=== PATIENT | male | born 1965 | race American Indian/Alaskan Native ===

== ENCOUNTER 2017-05-16 17:44 | Inpatient (IN) | payer BC ==
[2017-05-16] MEDS ORDERED: Morphine 4 MG/ML VIAL IV STA (18:38)
[2017-05-16] MEDS ORDERED: Morphine 4 MG/ML VIAL ONE (19:01)
[2017-05-16 19:04] LABS: BASO % 0.8 % (0.0-2.0); EOS # 0.2 K/uL (0.0-0.7); EOS % 5.5 % (0.0-4.0); HEMATOCRIT 38.8 % (35.0-51.0); LYMPH # 1.5 K/uL (1.0-4.3); LYMPH % 34.5 % (20.0-40.0); MEAN CELL VOLUME 84.7 fL (80.0-94.0); MEAN CORPUSCULAR HEMOGLOBIN 27.9 pg (27.0-31.0); MONO # 0.4 K/uL (0.0-0.8); MONO % 9.6 % (0.0-10.0); RED CELL DISTRIBUTION WIDTH 14.1 % (11.5-14.5); WHITE BLOOD COUNT 4.5 K/uL (4.8-10.8)
[2017-05-16 19:11] LABS: CHLORIDE 104 mmol/L (98-107)
[2017-05-16 19:12] LABS: POTASSIUM 3.8 mmol/L (3.6-5.2); SODIUM 137 mmol/L (132-148)
[2017-05-16 19:14] LABS: ALB/GLOB RATIO 0.9 (1.0-2.1); AST/SGOT 26 U/L (17-59); BILIRUBIN,TOTAL 0.4 mg/dL (0.2-1.3); CARBON DIOXIDE 24 mmol/L (22-30); GFR AFRICAN-AMERICAN > 60; TOTAL PROTEIN 8.6 g/dL (6.3-8.3)
[2017-05-16 19:15] LABS: ALKALINE PHOSPHATASE 77 U/L (38-126); ALT/SGPT 43 U/L (21-72); BLOOD UREA NITROGEN 14 mg/dL (9-20); CALCIUM 8.4 mg/dl (8.6-10.4); GLUCOSE,RANDOM 87 mg/dL (75-110)
--- NOTE | 2017-05-16 19:24 | RAD ---
PROCEDURE: CHEST RADIOGRAPH, 1 VIEW HISTORY: SOB COMPARISON: None available. FINDINGS: LUNGS: No infiltrates identified bilaterally. PLEURA: No pneumothorax or pleural fluid seen. CARDIOVASCULAR: Normal. OSSEOUS STRUCTURES: No significant abnormalities. VISUALIZED UPPER ABDOMEN: Normal. OTHER FINDINGS: None. IMPRESSION: No acute cardiopulmonary disease appreciated.
[2017-05-16] MEDS ORDERED: Iodixanol 320 MG/ML 200 ML BOTTLE IV ONE (20:14)
--- NOTE | 2017-05-16 21:48 | CT ---
EXAM: CT Chest With Intravenous Contrast CLINICAL HISTORY: 51 years old, male; Pain; Other: Upper back pain; Chest pain; Type not specified; Additional info: Belly radiating to back, +htn/dm TECHNIQUE: Axial computed tomography images of the chest with intravenous contrast. All CT scans at this facility use one or more dose reduction techniques, viz.: automated exposure control; ma/kV adjustment per patient size (including targeted exams where dose is matched to indication; i.e. head); or iterative reconstruction technique. Coronal and sagittal reformatted images were created and reviewed. CONTRAST: 100 mL of VISIPAQUE 320 administered intravenously. COMPARISON: No relevant prior studies available. FINDINGS: Lungs: Small amount of air is noted within the right ventricle and the left brachiocephalic vein. 3 tiny bubbles of air are also noted within tiny veins in the anterior mediastinum fat. A 3.6 mm nodule is noted in the posterior basal segment of the right lower lobe (series 6 image 49). A 2.5 mm pleural-based nodule is noted in the posterior basal segment of the left lower lobe (series 6 image 82). 8mm pleural based nodule is noted along the major fissure in the left upper lung field (series 6 image 38). Pleural space: Unremarkable. No pneumothorax. No significant effusion. Heart: See above. Bones/joints: Unremarkable. No acute fracture. No dislocation. Soft tissues: Unremarkable. Vasculature: See above. Lymph nodes: Unremarkable. No enlarged lymph nodes. IMPRESSION: 1. No evidence of aortic dissection or pulmonary embolic disease. 2. Bilateral pulmonary nodules. For low-risk patients, no follow-up is necessary. For high-risk patients (smoking history or other known risk factors) an optional chest CT at 12 months could be performed.. EXAM: CT Abdomen and Pelvis With Intravenous Contrast EXAM DATE/TIME: Exam ordered 05/16/2017 6:38 PM CLINICAL HISTORY: 51 years old, male; Pain; Other: Upper back pain; Chest pain; Type not specified; Additional info: Belly radiating to back, +htn/dm TECHNIQUE: Axial computed tomography images of the abdomen and pelvis with intravenous contrast. All CT scans at this facility use one or more dose reduction techniques, viz.: automated exposure control; ma/kV adjustment per patient size (including targeted exams where dose is matched to indication; i.e. head); or iterative reconstruction technique. Coronal and sagittal reformatted images were created and reviewed. CONTRAST: 100 mL of VISIPAQUE 320 administered intravenously. COMPARISON: No relevant prior studies available. FINDINGS: Lower thorax: No acute findings. ABDOMEN: Liver: Unremarkable. No mass. Gallbladder and bile ducts: Unremarkable. No calcified stones. No ductal dilation. Pancreas: Unremarkable. No mass. No ductal dilation. Spleen: Unremarkable. No splenomegaly. Adrenals: Unremarkable. No mass. Kidneys and ureters: There is mild fullness of the left renal collecting system and the left ureter. Stomach and bowel: Unremarkable. No obstruction. No mucosal thickening. Appendix: No findings to suggest acute appendicitis. PELVIS: Bladder: The bladder wall is thickened. The bladder is markedly distended measuring 17.4 x 9 by 11.3 cm. for a volume of 885 cc . Reproductive: The prostate measures 3.8 x 4.9 by 5 cm. for a volume of 48 g. ABDOMEN and PELVIS: Intraperitoneal space: Unremarkable. No free air. No significant fluid collection. Bones/joints: No acute fracture. No dislocation. Soft tissues: Unremarkable. Vasculature: Unremarkable. No abdominal aortic aneurysm. Lymph nodes: Unremarkable. No enlarged lymph nodes. IMPRESSION: 1. No evidence of aortic aneurysm or dissection. 2. Markedly distended bladder. 3. The prostate is mildly enlarged at 48 g in volume.
[2017-05-16 22:01] LABS: RBC URINE < 1 /hpf (0-3); URINE BILIRUBIN NEGATIVE (NEGATIVE); URINE BLOOD NEGATIVE (NEGATIVE); URINE COLOR Yellow (YELLOW); URINE GLUCOSE (UA) NORMAL (Normal); URINE KETONE NEGATIVE (NEGATIVE); URINE LEUKOCYTE ESTERASE NEG Leu/uL (Negative); URINE PROTEIN NEGATIVE (NEGATIVE); URINE UROBILINOGEN NORMAL mg/dL (0.2-1.0); WBC URINE 1 /hpf (0-5)
--- NOTE | 2017-05-16 22:02 | C.PDOC ---
History Of Present Illness Patient is a 51 y/o male who presents to the ED with a complaint of epigastric discomfort associated with incomplete urination and urinary incontinence at night while sleeping. 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 Notes having to force urination while sitting down. Patient has previous ED visits for same symptoms. Patient was evaluated by Dr. Hiro Hare and notes he has not been compliant with his Flomax since he ran out recently. Time Seen by Provider: 05/16/17 18:31 Chief Complaint (Nursing): Abdominal Pain History Per: Patient Past Medical History Vital Signs: Last Vital Signs Temp 98.1 F 05/17/17 00:00 Pulse 83 05/17/17 00:00 Resp 14 05/17/17 00:00 BP 140/94 H 05/17/17 00:00 Pulse Ox 100 05/17/17 01:14 - Medical History PMH: Diverticulitis, HTN, Kidney Stones (2003) Denies: Anxiety, Bipolar Disorder, Depression, Personality Disorder, Post Traumatic Stress Disorder, Schizophrenia - [facility] Procedures INTRODUCTION OF SERUM/TOX/VACCINE INTO MUSCLE, PERC APPROACH (10/19/15) Family History: States: Unknown Family Hx - Social History Hx Alcohol Use: Yes (Social use) Hx Substance Use: No - Immunization History Hx Tetanus Toxoid Vaccination: Yes Hx Influenza Vaccination: Yes Hx Pneumococcal Vaccination: No ED Course And Treatment - Laboratory Results Result Diagrams: 05/16/17 19:00 05/16/17 19:00 Lab Interpretation: Normal (UA neg.) ECG: Interpreted By Me ECG Rhythm: Sinus Rhythm ECG Interpretation: Normal Rate From EC O2 Sat by Pulse Oximetry: 100 Pulse Ox Interpretation: Normal - Radiology CXR: Interpreted by Me CXR Interpretation: Yes: No Acute Disease - CT Scan/US Chest Other Rad Studies (CT/US): Interpreted By Me, Read By Radiologist CT/US Interpretation: IMPRESSION: No evidence of aortic dissection or pulmonary embolic disease. Bilateral pulmonary nodules. For low-risk patients, no follow-up is necessary. For high-risk patients (smoking history or other known risk factors) an ptional chest CT at 12 months could be performed. Abd/Pelv Other Rad Studies (CT/US): Interpreted By Me, Read By Radiologist CT/US Interpretation: IMPRESSION: No evidence of aortic aneurysm or dissection. Markedly distended bladder. The prostate is mildly enlarged at 48 g in volume. Progress Note: 2200: enlarged prostate and distended bladder noted on CT ( approx 800cc) pt encouraged to urinate until empty for only approx 300-400 cc, chairez catheter placed without any urine. later chairez flushed and repositioned for rashel blood which clotted repeatedly and quickly. d/w Dr. Sky Chen and CBI ordered and well tolerated. Critical Care Time - Critical Care Note Total Time (in mins): 90 Documented critical care: time excludes all time spent performing seperately billable procedures. Medical Decision Making Medical Decision Making: recurrent urinary retention with enlarged prostate and thickened bladder noted on multiple CT scans. overflow incontinence non-compliance with flomax (or equivelent) chairez failed and provoked gross hematuria so CBI started, flomax restarted. Urology to follow in AM Disposition Doctor Will See Patient In The: Hospital Counseled Patient/Family Regarding: Studies Performed, Diagnosis - Disposition Disposition: HOSPITALIZED Disposition Time: 23:57 Condition: GOOD - Clinical Impression Clinical Impression: Urinary retention, Hematuria
--- NOTE | 2017-05-17 01:15 | C.PDOC ---
History Of Present Illness Patient is a 51 y/o male who presents to the ED with a complaint of epigastric discomfort that radiates to the back associated with incomplete urination and urinary incontinence at night while sleeping. 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 Notes having to force urination while sitting down. Patient has previous ED visits for same symptoms. Patient was evaluated by Dr. Hiro Hare and notes he has not been compliant with his Flomax since he ran out recently. Time Seen by Provider: 05/16/17 18:31 Chief Complaint (Nursing): Abdominal Pain History Per: Patient History/Exam Limitations: no limitations Location Of Pain/Discomfort: Epigastric Radiation Of Pain To:: Back Associated Symptoms: Urinary Symptoms (forced urination) Past Medical History Reviewed: Historical Data, Nursing Documentation, Vital Signs Vital Signs: Last Vital Signs Temp 98.4 F 05/18/17 15:15 Pulse 98 H 05/18/17 15:15 Resp 20 05/18/17 15:15 BP 136/79 05/18/17 15:15 Pulse Ox 96 05/18/17 15:15 - Medical History PMH: Diverticulitis, HTN, Kidney Stones (2003) Denies: Anxiety, Bipolar Disorder, Depression, Personality Disorder, Post Traumatic Stress Disorder, Schizophrenia Surgical History: No Surg Hx - [facility] Procedures INTRODUCTION OF SERUM/TOX/VACCINE INTO MUSCLE, PERC APPROACH (10/19/15) Family History: States: Unknown Family Hx - Social History Hx Alcohol Use: Yes (Social use) Hx Substance Use: No - Immunization History Hx Tetanus Toxoid Vaccination: Yes Hx Influenza Vaccination: Yes Hx Pneumococcal Vaccination: No Review Of Systems Gastrointestinal: Positive for: Abdominal Pain (epigastric - radiation to back) Genitourinary: Positive for: Incontinence (at night), Other (incomplete urination) Physical Exam - Physical Exam Appears: Well, Non-toxic, Other (tall, large, mordibly obese) Skin: Normal Color, Warm, Dry Head: Atraumatic, Normacephalic Oral Mucosa: Moist Chest: Symmetrical Cardiovascular: Rhythm Regular, No Murmur Respiratory: Normal Breath Sounds, No Rales, No Rhonchi, No Wheezing Gastrointestinal/Abdominal: Tenderness (suprapubic above umbilicus) Neurological/Psych: Oriented x3, Normal Speech, Normal Cognition ED Course And Treatment - Laboratory Results Result Diagrams: 05/18/17 07:14 11/11/17 07:14 O2 Sat by Pulse Oximetry: 100 - CT Scan/US Abd/Pelv Other Rad Studies (CT/US): Interpreted By Me, Read By Radiologist CT/US Interpretation: IMPRESSION: 1. No evidence of aortic aneurysm or dissection. 2. Markedly distended bladder. 3. The prostate is mildly enlarged at 48 g in volume. Medical Decision Making Medical Decision Making: Blood work, EKG, CXR, and CT Abd/Pelv ordered. Zofran, Percocet, Flomax, and Maxipime administered. Patient to be admitted to hospital. Disposition Doctor Will See Patient In The: Hospital Counseled Patient/Family Regarding: Studies Performed, Diagnosis - Disposition Disposition: HOSPITALIZED Disposition Time: 00:00 Condition: GOOD - Clinical Impression Clinical Impression: Urinary retention, Hematuria - Scribe Statement The provider has reviewed the documentation as recorded by the Scribe Misty Hernadez All medical record entries made by the Scribe were at my direction and personally dictated by me. I have reviewed the chart and agree that the record accurately reflects my personal performance of the history, physical exam, medical decision making, and the department course for this patient. I have also personally directed, reviewed, and agree with the discharge instructions and disposition.
[2017-05-17] MEDS: Dextrose 5%/0.45% NS 1,000 ML IV SCH ×2 (01:28→14:56)
[2017-05-17] MEDS: Oxycodone/Acetaminophen 5/325 mg Tab PO PRN (03:17)
--- NOTE | 2017-05-17 09:41 | CP.PCM.PN ---
Subjective - Date & Time of Evaluation Date of Evaluation: 05/17/17 Time of Evaluation: 09:37 - Subjective Subjective: Medicine Progress Note- Dr Belcher's service Patient seen and examined. Patient continues to have dark, rashel blood in his urine. Patient denies abdominal pain or back pain and states that those symptoms which initially brought him to the ED have now resolved. Patient states that he recently saw Dr Chen in his office and that he has a history of kidney stones. Patient states that he does not take any home medications. However, patient states he used to be on medication for his DM which he states his PMD discontinued because his sugars were controlled. Patient's PMD is located at [facility]. The patient had skin graft procedure on his left medial javed last week. He is following vascular surgeon as outpatient and a wound care center as well. Patient denies chest pain, palpitations, change in bowel movements, headache, dizziness, nausea, vomiting, and shortness of breath. Patient is scheduled for cystoscopy with Dr Chen today. The patient is medically stable for the procedure per attending Dr Belcher as benefits outweigh the risks. Objective - Vital Signs/Intake and Output Vital Signs (last 24 hours): Temp Pulse Resp BP Pulse Ox 98.6 F 91 H 20 101/65 96 05/17/17 08:00 05/17/17 08:00 05/17/17 08:00 05/17/17 08:00 05/17/17 08:00 Intake and Output: 05/17/17 05/17/17 06:59 18:59 Intake Total 600 Output Total 1675 Balance -1075 - Medications Medications: Current Medications Cefepime HCl 1 gm/ Dextrose 50 mls @ 100 mls/hr IVPB Q12H [facility] Last Admin: 05/17/17 01:50 Dose: 100 mls/hr Dextrose/Sodium Chloride (Dextrose 5%/0.45% Ns 1000 Ml) 1,000 mls @ 100 mls/hr IV .Q10H [facility] Last Admin: 05/17/17 01:28 Dose: 100 mls/hr Oxycodone/Acetaminophen (Percocet 5/325 Mg Tab) 1 tab PO Q4H PRN PRN Reason: pain Stop: 05/20/17 01:18 Last Admin: 05/17/17 03:17 Dose: 1 tab Pneumococcal Polyvalent Vaccine (Pneumovax 23 Vaccine) 0.5 ml IM .ONCE ONE Stop: 05/19/17 10:01 Tamsulosin HCl (Flomax) 0.4 mg PO DAILY JULIEN - Labs Labs: 05/17/17 01:22 05/16/17 19:00 - Constitutional Appears: Non-toxic, No Acute Distress - Head Exam Head Exam: ATRAUMATIC, NORMOCEPHALIC - Eye Exam Eye Exam: EOMI, Normal appearance, PERRL Pupil Exam: NORMAL ACCOMODATION - ENT Exam ENT Exam: Mucous Membranes Moist, Normal Exam - Neck Exam Neck Exam: Full ROM, Normal Inspection - Respiratory Exam Respiratory Exam: Clear to Ausculation Bilateral, NORMAL BREATHING PATTERN. absent: Rales, Rhonchi, Wheezes, Respiratory Distress - Cardiovascular Exam Cardiovascular Exam: REGULAR RHYTHM, +S1, +S2. absent: Tachycardia, Irregular Rhythm, Murmur - GI/Abdominal Exam GI & Abdominal Exam: Soft, Normal Bowel Sounds. absent: Distended, Firm, Guarding, Rigid, Tenderness - Exam Additional comments: Urine dark red - Extremities Exam Extremities Exam: absent: Pedal Edema, Tenderness Additional comments: Left medial javed graft healing well, no active drainage or bleeding. Covered area in clean dressing this morning. - Neurological Exam Neurological Exam: Alert, Awake, CN II-XII Intact, Oriented x3 - Psychiatric Exam Psychiatric exam: Normal Affect, Normal Mood - Skin Skin Exam: Dry, Normal Color, Warm Assessment and Plan - Assessment and Plan (Free Text) Assessment: 1. Hematuria Consulted urologist Dr Chen, help appreciated. Will f/u recommendations. s/p chairez insertion Scheduled for cystoscopy today, will f/u findings Hgb stable at this time, monitor CBC daily Flomax 0.4mg po daily 2. Abdominal pain Resolved CXR: No acute cardiopulmonary disease appreciated. CT dissection: No evidence of AAA or dissection. Bladder distended. Prostate enlarged. 3. Hx of DM Patient denies home medications. Sugars well controlled. Will f/u HgA1C. 4. Left leg ulcer PT evaluation Patient sees outpatient vascular surgeon and wound care facility. Continue management as outpatient. Will change dressing daily. 5. Prophylactic measures Encourage ambulation Protonix 40mg PO daily SCD contraindicated due to ulcer Chemical anticoagulation contraindicated due to hematuria
[2017-05-17 11:47] LABS: INR 1.1
[2017-05-17] MEDS ORDERED: cefTRIAXone IV 1 gm in Dextros 0 ML IVPB ONE (11:50)
[2017-05-17] MEDS ORDERED: Lactated Ringer's 1,000 ML IV ONE ×2 (11:59)
[2017-05-17] MEDS ORDERED: Propofol 10 mg/ml Inj (20 ML) ONE ×3 (12:05→13:03)
[2017-05-17] MEDS ORDERED: Midazolam 2 MG/2 ML VIAL ONE ×2 (12:05→12:29)
[2017-05-17] MEDS ORDERED: Lidocaine Hydrochloride 5 ML INJ ONE (12:29)
[2017-05-17] MEDS ORDERED: HYDROmorphone 0.5 mg/0.5 ml ISec IVP PRN (13:21)
[2017-05-18 07:36] LABS: CHLORIDE 105 mmol/L (98-107)
[2017-05-18 07:37] LABS: POTASSIUM 3.7 mmol/L (3.6-5.2); SODIUM 135 mmol/L (132-148)
[2017-05-18 07:39] LABS: ALB/GLOB RATIO 0.9 (1.0-2.1); ALKALINE PHOSPHATASE 53 U/L (38-126); AST/SGOT 16 U/L (17-59); BILIRUBIN,TOTAL 0.3 mg/dL (0.2-1.3); BLOOD UREA NITROGEN 16 mg/dL (9-20); CALCIUM 7.8 mg/dl (8.6-10.4); CARBON DIOXIDE 24 mmol/L (22-30); GFR AFRICAN-AMERICAN > 60; GLUCOSE,RANDOM 112 mg/dL (75-110); TOTAL PROTEIN 6.7 g/dL (6.3-8.3)
[2017-05-18 07:40] LABS: ALT/SGPT 34 U/L (21-72)
[2017-05-18 07:47] LABS: BASO % 0.2 % (0.0-2.0); EOS # 0.1 K/uL (0.0-0.7); EOS % 1.1 % (0.0-4.0)
[2017-05-18 07:59] LABS: HEMATOCRIT 24.7 % (35.0-51.0); LYMPH % 11.7 % (20.0-40.0); MEAN CELL VOLUME 84.5 fL (80.0-94.0); MEAN CORPUSCULAR HEMOGLOBIN 29.1 pg (27.0-31.0); MEAN CORPUSCULAR HGB CONC 34.4 g/dL (33.0-37.0); MEAN PLATELET VOLUME 7.7 fL (7.2-11.7); MONO # 0.6 K/uL (0.0-0.8); MONO % 7.7 % (0.0-10.0); RED CELL DISTRIBUTION WIDTH 14.2 % (11.5-14.5)
[2017-05-18 08:12] LABS: WHITE BLOOD COUNT 8.2 K/uL (4.8-10.8)
[2017-05-18] MEDS: Dextrose 5%/0.45% NS 1,000 ML IV SCH ×3 (13:55→22:55)
[2017-05-19] MEDS: Dextrose 5%/0.45% NS 1,000 ML IV SCH ×3 (03:30→23:52)
[2017-05-19] MEDS ORDERED: Pneumococcal 23-Valent Vaccine IM ONE (10:00)
[2017-05-19 11:48] LABS: BASO % 0.6 % (0.0-2.0); EOS # 0.3 K/uL (0.0-0.7); EOS % 5.6 % (0.0-4.0); HEMATOCRIT 24.1 % (35.0-51.0); LYMPH # 1.3 K/uL (1.0-4.3); LYMPH % 22.8 % (20.0-40.0); MEAN CORPUSCULAR HEMOGLOBIN 28.7 pg (27.0-31.0); MEAN CORPUSCULAR HGB CONC 33.7 g/dL (33.0-37.0); MEAN PLATELET VOLUME 7.5 fL (7.2-11.7); MONO # 0.6 K/uL (0.0-0.8); MONO % 10.2 % (0.0-10.0); RED CELL DISTRIBUTION WIDTH 14.3 % (11.5-14.5); WHITE BLOOD COUNT 5.8 K/uL (4.8-10.8)
[2017-05-19 12:12] LABS: CHLORIDE 102 mmol/L (98-107)
[2017-05-19 12:13] LABS: POTASSIUM 3.7 mmol/L (3.6-5.2); SODIUM 134 mmol/L (132-148)
[2017-05-19 12:15] LABS: ALB/GLOB RATIO 1.2 (1.0-2.1); AST/SGOT 20 U/L (17-59); BILIRUBIN,TOTAL 0.6 mg/dL (0.2-1.3); BLOOD UREA NITROGEN 10 mg/dL (9-20); CARBON DIOXIDE 27 mmol/L (22-30); GFR AFRICAN-AMERICAN > 60
[2017-05-19 12:16] LABS: ALKALINE PHOSPHATASE 57 U/L (38-126); ALT/SGPT 31 U/L (21-72); CALCIUM 7.9 mg/dl (8.6-10.4); GLUCOSE,RANDOM 98 mg/dL (75-110)
--- NOTE | 2017-05-19 12:40 | PCM.URO ---
Urology Progress Note - Subjective Abdominal Pain: Yes Hematuria: Yes (post op) - Objective Lab Studies: Reviewed (full note to be dictated // plan for trial of void) Lab Results Last 24 Hours: Laboratory Results - last 24 hr 05/18/17 05/19/17 05/19/17 07:14 11:29 11:29 WBC 5.8 RBC 2.83 L Hgb 8.1 L Hct 24.1 L MCV 85.0 MCH 28.7 MCHC 33.7 RDW 14.3 Plt Count 181 MPV 7.5 Neut % (Auto) 60.8 Lymph % (Auto) 22.8 Andrew % (Auto) 10.2 H Eos % (Auto) 5.6 H Baso % (Auto) 0.6 Neut # 3.5 Lymph # 1.3 Andrew # 0.6 Eos # 0.3 Baso # 0.0 Sodium 134 Potassium 3.7 Chloride 102 Carbon Dioxide 27 Anion Gap 10 BUN 10 Creatinine 1.1 Est GFR ( Amer) > 60 Est GFR (Non-Af Amer) > 60 Random Glucose 98 Hemoglobin A1c 6.3 Calcium 7.9 L Total Bilirubin 0.6 AST 20 ALT 31 Alkaline Phosphatase 57 Total Protein 6.0 L Albumin 3.3 L Globulin 2.8 Albumin/Globulin Ratio 1.2 Intake & Output: Intake & Output 05/18/17 05/19/17 05/19/17 18:59 06:59 18:59 Intake Total 2120 2290 Output Total 15359 2800 Balance -8666 -510 Intake: Intake, IV Amount 1440 1600 Left Hand 1440 1600 Oral 680 690 Output: Urine 14290 2800 3-way Urethral 8750 2800 Urine, Voided 2000 Stool 0 0 Vital Signs: Vital Signs - 24 hr 05/18/17 05/19/17 05/19/17 15:15 00:00 00:13 Temperature 98.4 F 98.5 F Pulse Rate 98 H 90 Respiratory 20 20 Rate Blood Pressure 136/79 152/86 H O2 Sat by Pulse 96 97 100 Oximetry 05/19/17 08:01 Temperature 98.2 F Pulse Rate 81 Respiratory 20 Rate Blood Pressure 144/83 O2 Sat by Pulse 98 Oximetry
[2017-05-19] MEDS ORDERED: Magnesium Hydroxide Susp 30 ml UD PO ONE (13:30)
[2017-05-19] MEDS: Oxycodone/Acetaminophen 5/325 mg Tab PO PRN (23:49)
[2017-05-20 08:26] LABS: CHLORIDE 101 mmol/L (98-107); POTASSIUM 3.5 mmol/L (3.6-5.2); SODIUM 133 mmol/L (132-148)
[2017-05-20 08:28] LABS: ALB/GLOB RATIO 1.2 (1.0-2.1); ALKALINE PHOSPHATASE 56 U/L (38-126); ALT/SGPT 34 U/L (21-72); AST/SGOT 18 U/L (17-59); BILIRUBIN,TOTAL 0.5 mg/dL (0.2-1.3); BLOOD UREA NITROGEN 12 mg/dL (9-20); CARBON DIOXIDE 26 mmol/L (22-30); GFR AFRICAN-AMERICAN > 60; GLUCOSE,RANDOM 101 mg/dL (75-110); TOTAL PROTEIN 5.8 g/dL (6.3-8.3)
[2017-05-20 08:30] LABS: BASO % 0.7 % (0.0-2.0); EOS # 0.4 K/uL (0.0-0.7); EOS % 5.5 % (0.0-4.0); HEMATOCRIT 22.6 % (35.0-51.0); LYMPH # 1.7 K/uL (1.0-4.3); LYMPH % 24.7 % (20.0-40.0); MEAN CELL VOLUME 85.1 fL (80.0-94.0); MEAN CORPUSCULAR HEMOGLOBIN 29.1 pg (27.0-31.0); MEAN CORPUSCULAR HGB CONC 34.2 g/dL (33.0-37.0); MEAN PLATELET VOLUME 7.5 fL (7.2-11.7); MONO # 0.6 K/uL (0.0-0.8); MONO % 8.2 % (0.0-10.0); NRBC % 0.1 % (0.0-2.0); PLATELET COUNT 189 K/uL (130-400); RED CELL DISTRIBUTION WIDTH 13.8 % (11.5-14.5); WHITE BLOOD COUNT 6.9 K/uL (4.8-10.8)
[2017-05-20] MEDS ORDERED: Potassium Chloride 20 mEq ER Tab PO ONE (11:30)
--- NOTE | 2017-05-20 11:30 | CP.PCM.PN ---
Subjective - Date & Time of Evaluation Date of Evaluation: 05/20/17 Time of Evaluation: 11:30 - Subjective Subjective: Progress note. Attending: Dr. Belcher Pt seen and examined at bedside. No acute distress. No events overnight. No fevers, chills, vomiting, diarrhea. No current complaints. Objective - Vital Signs/Intake and Output Vital Signs (last 24 hours): Temp Pulse Resp BP Pulse Ox 98 F 79 20 122/72 98 05/20/17 07:38 05/20/17 07:38 05/20/17 07:38 05/20/17 07:38 05/20/17 07:38 Intake and Output: 05/20/17 05/20/17 06:59 18:59 Intake Total 2480 Output Total 1350 Balance 1130 - Medications Medications: Current Medications Cefepime HCl 1 gm/ Dextrose 50 mls @ 100 mls/hr IVPB Q12H [facility] Last Admin: 05/20/17 01:40 Dose: 100 mls/hr Potassium Chloride (K-Dur 20 Meq Er Tab) 20 meq PO ONCE ONE Stop: 05/21/17 10:01 Tamsulosin HCl (Flomax) 0.4 mg PO DAILY [facility] Last Admin: 05/20/17 09:54 Dose: 0.4 mg - Labs Labs: 05/20/17 07:57 05/20/17 07:57 PT 12.4 SECONDS (9.7-12.2) H 05/17/17 11:24 INR 1.1 05/17/17 11:24 APTT 29 SECONDS (21-34) 05/17/17 11:24 - Constitutional Appears: Non-toxic, No Acute Distress - Head Exam Head Exam: ATRAUMATIC, NORMAL INSPECTION, NORMOCEPHALIC - Eye Exam Eye Exam: EOMI - ENT Exam ENT Exam: Mucous Membranes Moist - Neck Exam Neck Exam: Full ROM, Normal Inspection - Respiratory Exam Respiratory Exam: NORMAL BREATHING PATTERN. absent: Respiratory Distress - Cardiovascular Exam Cardiovascular Exam: +S1, +S2 - GI/Abdominal Exam GI & Abdominal Exam: Soft, Normal Bowel Sounds. absent: Tenderness - Extremities Exam Extremities Exam: Full ROM, Normal Inspection - Back Exam Back Exam: NORMAL INSPECTION - Neurological Exam Neurological Exam: Alert, Awake, Oriented x3 - Psychiatric Exam Psychiatric exam: Normal Affect, Normal Mood - Skin Skin Exam: Dry, Intact, Normal Color, Warm Assessment and Plan - Assessment and Plan (Free Text) Assessment: This is a 51 yo male with 1. Hematuria Urology consult. Dr. Chen. recs appreciated. s/p chairez insertion will follow cultures s/p cystoscopy with fulguration Hgb stable at this time, monitor CBC daily Flomax 0.4mg po daily 2. Abdominal pain Resolved CXR: No acute cardiopulmonary disease appreciated. CT dissection: No evidence of AAA or dissection. Bladder distended. Prostate enlarged. 3. Hx of DM Patient denies home medications. Sugars well controlled. HGB a1C 6.3. 4. Left leg ulcer PT evaluation Patient sees outpatient vascular surgeon and wound care facility. Continue management as outpatient. Will change dressing daily. 5. GI/DVT ppx Encourage ambulation Protonix 40mg PO daily SCD contraindicated due to ulcer Chemical anticoagulation contraindicated due to hematuria
--- NOTE | 2017-05-20 14:32 | PCM.URO ---
Urology Progress Note - Objective Lab Studies: Reviewed (ct/ possible transusion /) Lab Results Last 24 Hours: Laboratory Results - last 24 hr 05/20/17 05/20/17 07:57 07:57 WBC 6.9 RBC 2.66 L Hgb 7.7 L Hct 22.6 L MCV 85.1 MCH 29.1 MCHC 34.2 RDW 13.8 Plt Count 189 MPV 7.5 Neut % (Auto) 60.9 Lymph % (Auto) 24.7 Cole % (Auto) 8.2 Eos % (Auto) 5.5 H Baso % (Auto) 0.7 Neut # 4.2 Lymph # 1.7 Cole # 0.6 Eos # 0.4 Baso # 0.0 Sodium 133 Potassium 3.5 L Chloride 101 Carbon Dioxide 26 Anion Gap 10 BUN 12 Creatinine 1.1 Est GFR ( Amer) > 60 Est GFR (Non-Af Amer) > 60 Random Glucose 101 Calcium 8.0 L Total Bilirubin 0.5 AST 18 ALT 34 Alkaline Phosphatase 56 Total Protein 5.8 L Albumin 3.2 L Globulin 2.6 Albumin/Globulin Ratio 1.2 Intake & Output: Intake & Output 05/19/17 05/20/17 05/20/17 18:59 06:59 18:59 Intake Total 2480 Output Total 1350 Balance 1130 Intake: Intake, IV Amount 1600 Left Hand 1600 Oral 880 Output: Urine 1350 3-way Urethral 1350 Other: # Bowel Movements 0 Vital Signs: Vital Signs - 24 hr 05/19/17 05/19/17 05/20/17 15:00 23:59 07:38 Temperature 98.2 F 98.1 F 98 F Pulse Rate 91 H 84 79 Respiratory 20 19 20 Rate Blood Pressure 122/76 143/80 122/72 O2 Sat by Pulse 99 98 98 Oximetry
[2017-05-20] MEDS ORDERED: Iodixanol 320 MG/ML 100 ML BOTTLE IV ONE (16:22)
--- NOTE | 2017-05-20 17:06 | PN ---
UROLOGY PROGRESS NOTE DATE: 05/19/2017 See the history and physical and consultation from 05/17/2017. SUBJECTIVE: The patient is currently resting comfortably, feel like the catheter is draining better. There is a little blood noted. The urine has cleared up. Of note, the hemoglobin is dropped to about 8. See the original labs, etc. Patient is not experiencing any chest pain or shortness of breath. The vital signs are within normal limits. PAST MEDICAL AND SURGICAL HISTORY: Otherwise unchanged. PHYSICAL EXAMINATION: Unchanged. The catheter has been placed, draining clear yellow urine. DIAGNOSES: Gross hematuria, urinary retention, and anemia. PLAN: As follows: We are going to monitor the hemoglobin and hematocrit and see if it is the Urology or even if there are other sources, so today we took off the traction. We are going to monitor the patient, irrigate the Lopez catheter, and plan for voiding trial tomorrow. Regarding his hemoglobin and hematocrit, he may require a repeat CT scan of abdomen and pelvis and may require some other GI evaluation. The other thing is consideration for transfusion, especially years old and he does not have any symptoms now, blood pressure and heart rate all acceptable, but it is concerning with his numbers. Jt Chen MD
[2017-05-20] MEDS: Dextrose 5%/0.45% NS 1,000 ML IV SCH (19:07)
[2017-05-20 20:05] LABS: EOSINOPHIL 5 % (0-4); NEUTROPHIL 59 % (50-75); TOTAL CELLS COUNTED 100
--- NOTE | 2017-05-20 20:39 | CT ---
EXAM: CT Abdomen and Pelvis Without and With Intravenous Contrast EXAM DATE/TIME: 05/20/2017 2:30 PM CLINICAL HISTORY: 51 years old, male; Condition or disease; Kidney or ureter condition; Other: Hematuria; Additional info: Gross hematuria/hg is 7 TECHNIQUE: Axial computed tomography images of the abdomen and pelvis without and with intravenous contrast. All CT scans at this facility use one or more dose reduction techniques, viz.: automated exposure control; ma/kV adjustment per patient size (including targeted exams where dose is matched to indication; i.e. head); or iterative reconstruction technique. Coronal and sagittal reformatted images were created and reviewed. CONTRAST: 100 mL of visipaque 320 administered intravenously. COMPARISON: CT chest abdomen pelvis 05/16/17 FINDINGS: Lower thorax: Heart size is normal. Lung bases are well inflated. There is minimal scarring. There is no focal consolidation. ABDOMEN: Liver: unremarkable Gallbladder and bile ducts: unremarkable Pancreas: unremarkable Spleen: Spleen is unremarkable. There is an accessory spleen in the left upper quadrant. Adrenals: Left adrenal is unremarkable. There is a small right adrenal nodule. Kidneys and ureters: There are no focal renal abnormalities. There are no renal or ureteral stones. There are no renal masses.There is no pelvocaliectasis or ureterectasis. Stomach and bowel: Stomach is partially distended. Rotation is normal. There is no obstruction. Ileocecal region is unremarkable. Appendix and terminal ileum are unremarkable.There is moderate stool in the colon. There is scattered diverticulosis Appendix: See stomach and bowel PELVIS: Bladder: Bladder is almost empty. There is bladder wall thickening and trabeculation. There is a small amount of air in the bladder. There is a mass at the base of the bladder. Reproductive: The prostate is enlarged. Seminal vesicles have the expected configuration. ABDOMEN and PELVIS: Intraperitoneal space: There is no free air or free fluid. Bones/joints: There are degenerative changes in the osseus structures. Soft tissues: There is a small fat containing umbilical hernia. There are fat containing inguinal hernias. Vasculature: Vascular structures are unremarkable. Lymph nodes: There is shotty adenopathy. IMPRESSION: No renal masses, no renal or ureteral stones or hydronephrosis; marked bladder wall thickening and trabeculation with a mass at the base of the bladder, bladder mass versus secondary to enlarged prostate; small amount of air in the bladder possibly iatrogenic; enlarged prostate Urologic consultation advised Additional findings as described above.
--- NOTE | 2017-05-21 02:54 | OP ---
UROLOGY OPERATIVE REPORT PROCEDURE DATE: 05/17/2017 PREOPERATIVE DIAGNOSES: Gross hematuria, urinary retention, voiding dysfunction. POSTOPERATIVE DIAGNOSES: Gross hematuria, urinary retention, voiding dysfunction, bleeding from the prostatic urethra. PROCEDURE: Cystoscopy, evacuation of clots, fulguration of any bleeding sites that looked abnormal specifically within the prostate. COMPLICATIONS: There were no complications. ESTIMATED BLOOD LOSS: Less than 10 mL (during the procedure, that is the patient lost a good volume of blood before). DRAIN: Lopez catheter left with a mild traction. COMPLICATIONS: None. FINDINGS: Normal anterior urethra, no strictures on reviewing and it was minimally visually occlusive, fairly large for a patient of only 51 years old about 3 cm in length. It is bloody when we turned off the irrigant. There was blood noted at the bladder neck and the prostate itself. The bleeding seems to be there. There does not seem to a tremendous amount of blood in the urinary bladder. I do not see any other abnormalities appreciated. I do not see bleeding from the orifices, but it is difficult to evaluate, there really is a lot of blood that we needed to irrigate out by the time at the end of the procedure, we had the patient relatively clear, appeared with mild deflexion during the CBI running. The procedure itself is as mentioned. INDICATIONS: See history and physical and consultation. This is a very pleasant gentleman, 51-year-old with voiding dysfunction, very pleasant, but extremely noncompliant, only comes in if there is a problem. History of stone disease. Here because he had urinary retention, originally came in with abdominal pain. The ER doctor actually thought it was maybe an aneurysm, but further evaluation on the CT scan showed a distended bladder, we placed the Lopez, irrigated and it became bloody. He is now here for the above procedure. DESCRIPTION OF PROCEDURE: After obtaining informed consent, the patient was placed on the table. Routine monitors were placed. Time-out was called. We confirmed the patient and positioning. The cystoscope was introduced via urethra. The entrance was normal. No strictures on reviewing and it was minimally visually occlusive and there is a bloody juicy prostate that appeared about 3 cm in length, it is fairly large for size. The orifices were not well seen. I irrigated out a ton of clots. Further inspection revealed the bladder mucosa relatively normal. Moderately trabeculated for age, it is more significant, but I do not see any bladder tumor. We got a reasonably good enough look. is still low. Overall, the patient tolerated the procedure without complication. I fulgurated the prostatic bed that looked erythematous. I did not do . It is just a diffuse erythema and redness. We fulgurated gently, but carefully. Now I inserted a Lopez catheter, I usually leave it on a mild traction, and with the CBI running, it is really very clear urine. Overall, the patient tolerated the procedure without complication. I just want to mention rectal exam, 30 g prostate soft and smooth.. The plan is as follows: 1. Make an addendum to this note. Plan is Lopez to straight drainage with mild traction with CBI irrigation and adjust the rate accordingly. 2. Cytology, serum PSA. We will follow the patient closely and make further recommendation and plan. Jt Chen MD
--- NOTE | 2017-05-21 03:10 | OP ---
PROCEDURE DATE: 05/17/2017 PREOPERATIVE DIAGNOSES: Gross hematuria and voiding dysfunction. POSTOPERATIVE DIAGNOSES: Gross hematuria and voiding dysfunction. PROCEDURE: Cystoscopy, evacuation of ton of clots and fulguration of bleeding sites. FINDINGS: Normal anterior urethra with no strictures, on reviewing is visually occlusive, fairly large for a patient of this age, 3 cm in size length juicy prostate. We irrigated the bladder blood. I did not see any lesions in the bladder. See the plans listed below, past medical and surgical history. ESTIMATED BLOOD LOSS: Less than 2 mL. COMPLICATIONS: There was no complication. DESCRIPTION OF PROCEDURE: After obtaining informed consent, the patient was placed on the table. Routine monitors were placed. Time-out was called, confirmed the patient, patient is placed on the table. Time out was called. Patient was already on antibiotic prophylaxis. We introduced cystoscope via the urethra. We identified there was no stricture on reviewing and visually occlusive. It is about 3 cm, fairly large for a patient of this age only 52. Now it was difficult to inspect the bladder initially because there was so much blood. We irrigated it tremendously. Once we cleared up the blood, in fact, there was no real definite bladder tumor seen. *------* somewhat bloody and now irrigated. See the plans listed below. We fulgurated what looks like bleeding from the bladder. There was a tremendous amount of prostatic irritation. We continued. Whether this is from the baseline or whether this is because the patient started bleeding, whether it is related to Lopez catheter, it is very difficult to tell at this point, but there is a good amount of blood. So I irrigated the bladder as best as possible and then we fulgurated any of the juicy areas, but there was no specific bleeding point *------*. At this point, I placed a Lopez catheter via the urethra, we put it on traction. The patient tolerated this procedure without complications. ADDENDUM: We are going to recommend CT scan of abdomen and pelvis for followup. At some point, we will discuss the timing. Jt Chen MD
[2017-05-21] MEDS: Dextrose 5%/0.45% NS 1,000 ML IV SCH ×2 (05:15→15:57)
[2017-05-21 08:20] LABS: BASO % 0.5 % (0.0-2.0); EOS # 0.4 K/uL (0.0-0.7); EOS % 4.8 % (0.0-4.0); HEMATOCRIT 30.9 % (35.0-51.0); LYMPH # 1.7 K/uL (1.0-4.3); LYMPH % 20.8 % (20.0-40.0); MEAN CELL VOLUME 85.5 fL (80.0-94.0); MEAN CORPUSCULAR HEMOGLOBIN 29.3 pg (27.0-31.0); MEAN CORPUSCULAR HGB CONC 34.3 g/dL (33.0-37.0); MEAN PLATELET VOLUME 7.3 fL (7.2-11.7); MONO # 0.5 K/uL (0.0-0.8); MONO % 6.2 % (0.0-10.0); NRBC % 0.2 % (0.0-2.0); RED CELL DISTRIBUTION WIDTH 13.9 % (11.5-14.5); WHITE BLOOD COUNT 8.2 K/uL (4.8-10.8)
[2017-05-21 08:31] LABS: CHLORIDE 101 mmol/L (98-107); POTASSIUM 4.1 mmol/L (3.6-5.2); SODIUM 136 mmol/L (132-148)
[2017-05-21 08:33] LABS: BILIRUBIN,TOTAL 0.7 mg/dL (0.2-1.3); GFR AFRICAN-AMERICAN > 60; IRON 76 ug/dL (49-181)
[2017-05-21 08:34] LABS: ALB/GLOB RATIO 1.2 (1.0-2.1); ALKALINE PHOSPHATASE 71 U/L (38-126); ALT/SGPT 50 U/L (21-72); AST/SGOT 23 U/L (17-59); BLOOD UREA NITROGEN 13 mg/dL (9-20); CARBON DIOXIDE 27 mmol/L (22-30); GLUCOSE,RANDOM 102 mg/dL (75-110); PHOSPHOROUS 3.7 mg/dL (2.5-4.5); TOTAL PROTEIN 7.2 g/dL (6.3-8.3)
[2017-05-21 08:35] LABS: CALCIUM 8.6 mg/dl (8.6-10.4); MAGNESIUM 1.9 mg/dL (1.6-2.3)
--- NOTE | 2017-05-21 09:58 | PN ---
UROLOGY PROGRESS NOTE DATE: 05/20/2017 See the many previously dictated notes. The patient came in overnight, night, Saturday morning. At that time, he had gross hematuria. We brought him to the OR immediately. He had urinary retention first, maybe some difficulty with the catheter, but the catheter was ultimately in place. We did a cystoscopy. We fulgurated some bleeding sites, I drained tremendous amount of clots, see the previously dictated operative note, consult notes, and daily progress note. Since then I have been monitoring the patient. The urine has cleared up very nicely, but his hemoglobin still continues to fall, yesterday it was 8, hemoglobin today is 7. The Lopez catheter has clear urine. giving a voiding trial. See the plans listed below PAST MEDICAL AND SURGICAL HISTORY: As listed on the chart. No history of VT or CVA. He is a 51-year-old gentleman. REVIEW OF SYSTEMS: Listed as above, noncontributory. See the previously dictated notes. PHYSICAL EXAMINATION: GENERAL: A well-nourished male. He is currently resting comfortably on his bed. ABDOMEN: Soft. It is not grossly distended. Lopez catheter is in place, draining well clear urine. DIAGNOSES: Gross hematuria, urinary retention, voiding dysfunction, severe anemia. PLAN: As follows. The patient is being seen also by the medical therapist. We will consider other consultants. Hematology, etc. From our end of things, we need to see the source of the bleeding, make sure it is not the urinary system, could be GI, may be consider GI consultation. There are a lot of possibilities. From our end, we are going to plan the followin. Urine cytology. 2. PSA. 3. We are giving a voiding trail. 4. CT scan of the abdomen and pelvis without and with IV contrast and then further plans will follow. We are going to follow the patient closely. We would consider that even though his vital signs are stable, he is only [id number], we have to balance that with his general medical condition, the consideration for risk of VT, ischemia, etc. and consider . Jt Chen MD
[2017-05-21] MEDS: Ferric Sodium Gluconat Complex 62.5 mg/5 ml Vial IVPB SCH (10:03)
--- NOTE | 2017-05-21 10:23 | HP ---
DATE: 05/16/2017 HISTORY OF PRESENT ILLNESS: Chief complaint of weakness, fatigue, hematuria. The patient has not had any urological problem before, there was kidney stones. PHYSICAL EXAMINATION: GENERAL: The patient is awake, alert, and oriented. VITAL SIGNS: Temperature 98, pulse 96. HEENT: Within normal limits. NECK: Supple. CHEST: Symmetrical. HEART: Regular. ABDOMEN: Soft. EXTREMITIES: No edema. IMPRESSION AND PLAN: Hematuria. The patient bedrest, IV antibiotics, . Benoit Belcher MD
--- NOTE | 2017-05-21 11:07 | CARD ---
APPROVED REPORT EKG Measurement Heart [id number] <Conclusion> Normal sinus rhythm Minimal voltage criteria for LVH, may be normal variant Borderline ECG
--- NOTE | 2017-05-21 11:22 | CP.PCM.PN ---
Subjective - Date & Time of Evaluation Date of Evaluation: 05/21/17 Time of Evaluation: 11:23 - Subjective Subjective: Medicine Progress Note- Dr Belcher's service Patient seen and examined. Patient states that he feels well and denies fatigue , dizziness, chest pain, abdominal pain, and lightheadedness. Patient had an episode of hematuria yesterday. He has been ambulating without difficulty. patient states that his left javed ulcer dressing is being changed daily. Denies leg pain. Patient going for procedure this morning with Dr Amor. Objective - Vital Signs/Intake and Output Vital Signs (last 24 hours): Temp Pulse Resp BP Pulse Ox 98.6 F 85 20 134/68 99 05/21/17 04:00 05/21/17 04:00 05/21/17 04:00 05/21/17 04:00 05/20/17 23:45 Intake and Output: 05/21/17 05/21/17 06:59 18:59 Intake Total 1900 Output Total 200 Balance 1700 - Medications Medications: Current Medications Ferric Sodium Gluconate Complex (Ferrlecit) 125 mg IVPB DAILY [facility] Stop: 05/29/17 10:01 Last Admin: 05/21/17 10:03 Dose: 125 mg Cefepime HCl 1 gm/ Dextrose 50 mls @ 100 mls/hr IVPB Q12H [facility] Last Admin: 05/21/17 00:30 Dose: 100 mls/hr Dextrose/Sodium Chloride (Dextrose 5%/0.45% Ns 1000 Ml) 1,000 mls @ 100 mls/hr IV .Q10H [facility] Last Admin: 05/21/17 05:15 Dose: Not Given Tamsulosin HCl (Flomax) 0.4 mg PO DAILY [facility] Last Admin: 05/21/17 10:03 Dose: Not Given - Labs Labs: 05/21/17 08:09 05/21/17 08:09 PT 12.4 SECONDS (9.7-12.2) H 05/17/17 11:24 INR 1.1 05/17/17 11:24 APTT 29 SECONDS (21-34) 05/17/17 11:24 - Constitutional Appears: Non-toxic, No Acute Distress - Head Exam Head Exam: ATRAUMATIC, NORMOCEPHALIC - Eye Exam Eye Exam: EOMI, Normal appearance Pupil Exam: NORMAL ACCOMODATION - ENT Exam ENT Exam: Mucous Membranes Moist - Respiratory Exam Respiratory Exam: Clear to Ausculation Bilateral, NORMAL BREATHING PATTERN. absent: Prolonged Expiratory Phase, Rhonchi, Wheezes - Cardiovascular Exam Cardiovascular Exam: REGULAR RHYTHM, +S1, +S2 - GI/Abdominal Exam GI & Abdominal Exam: Soft, Normal Bowel Sounds. absent: Tenderness - Extremities Exam Extremities Exam: absent: Pedal Edema, Tenderness Additional comments: left javed ulcer s/p skin graft repair, healing well - Neurological Exam Neurological Exam: Alert, Awake, CN II-XII Intact, Normal Gait, Oriented x3 - Psychiatric Exam Psychiatric exam: Normal Affect, Normal Mood - Skin Skin Exam: Dry, Intact, Normal Color, Warm Assessment and Plan - Assessment and Plan (Free Text) Assessment: Hematuria Urology consult. Dr. Chen, recommendations appreciated. s/p cystoscopy with fulguration on 05/17 Scheduled for cystoscopy today 05/21- will f/u report s/p transfusion of 2u pRBCs on 05/20- Hgb increased to 10.6 Will monitor CBC daily Flomax 0.4mg po daily Abdominal pain Resolved CXR: No acute cardiopulmonary disease appreciated. CT dissection: No evidence of AAA or dissection. Bladder distended. Prostate enlarged. Hx of DM Patient denies home medications. Sugars well controlled. HgA1C 6.3 No need for acute medications, continue diet control Left leg ulcer PT evaluation Patient sees outpatient vascular surgeon and wound care facility. s/p skin graft repair. Continue management as outpatient. Will change dressing daily. GI/DVT ppx Encourage ambulation Protonix 40mg PO daily SCD contraindicated due to ulcer Chemical anticoagulation contraindicated due to hematuria
[2017-05-21 14:37] LABS: IRON 154 ug/dL (49-181)
[2017-05-21] MEDS ORDERED: Lactated Ringer's 1,000 ML IV ONE (16:05)
[2017-05-21] MEDS ORDERED: Midazolam 2 MG/2 ML VIAL ONE (16:07)
[2017-05-21] MEDS ORDERED: Propofol 10 mg/ml Inj (20 ML) ONE (16:07)
[2017-05-21] MEDS: HYDROmorphone 0.5 mg/0.5 ml ISec IVP PRN ×2 (16:53→17:09)
[2017-05-21 21:59] VITALS: RESP 20
[2017-05-21] MEDS: Oxycodone/Acetaminophen 5/325 mg Tab PO PRN (22:42)
[2017-05-22] MEDS: Dextrose 5%/0.45% NS 1,000 ML IV SCH ×3 (01:15→14:48)
[2017-05-22] MEDS: Oxycodone/Acetaminophen 5/325 mg Tab PO PRN (07:06)
[2017-05-22 08:25] LABS: HEMATOCRIT 26.7 % (35.0-51.0); MEAN CELL VOLUME 85.9 fL (80.0-94.0); MEAN CORPUSCULAR HEMOGLOBIN 29.6 pg (27.0-31.0); MEAN CORPUSCULAR HGB CONC 34.5 g/dL (33.0-37.0); RED CELL DISTRIBUTION WIDTH 13.9 % (11.5-14.5); WHITE BLOOD COUNT 7.3 K/uL (4.8-10.8)
[2017-05-22 08:47] LABS: BLOOD UREA NITROGEN 12 mg/dL (9-20); CALCIUM 8.1 mg/dl (8.6-10.4); CARBON DIOXIDE 26 mmol/L (22-30); CHLORIDE 100 mmol/L (98-107); GFR AFRICAN-AMERICAN > 60; GLUCOSE,RANDOM 99 mg/dL (75-110); SODIUM 134 mmol/L (132-148)
--- NOTE | 2017-05-22 09:42 | CP.PCM.PN ---
Subjective - Date & Time of Evaluation Date of Evaluation: 05/22/17 Time of Evaluation: 10:00 - Subjective Subjective: Medicine Progress Note- Dr Belcher's service Patient seen and examined. Patient states that he feels well with no acute complaints. The patient has chairez catheter in at this time which is draining yellow, clear urine, no rashel blood noted. Patient denies dizziness, abdominal pain, chest pain, palpitations, shortness of breath, and constipation. Patient is to be discharged today per Dr Belcher. Chairez catheter to be removed. The patient should follow up with Dr Chen in his office this Thursday 05/24. He will be given script for Flomax 0.4mg daily, to be resumed by urologist Dr Chen. The patient should also follow up with his PMD within 1 week of discharge. Patient should return to the ED if he has any concerns. Instructions were explained to the patient who understands. Objective - Vital Signs/Intake and Output Vital Signs (last 24 hours): Temp Pulse Resp BP Pulse Ox 98.6 F 86 20 137/79 97 05/22/17 08:02 05/22/17 08:02 05/22/17 08:02 05/22/17 08:02 05/22/17 08:02 Intake and Output: 05/22/17 05/22/17 06:59 18:59 Intake Total 800 1040 Output Total 700 850 Balance 100 190 - Medications Medications: Current Medications Ferric Sodium Gluconate Complex (Ferrlecit) 125 mg IVPB DAILY [facility] Stop: 05/29/17 10:01 Last Admin: 05/21/17 10:03 Dose: 125 mg Dextrose/Sodium Chloride (Dextrose 5%/0.45% Ns 1000 Ml) 1,000 mls @ 100 mls/hr IV .Q10H [facility] Last Admin: 05/22/17 05:43 Dose: 100 mls/hr Oxycodone/Acetaminophen (Percocet 5/325 Mg Tab) 2 tab PO Q4H PRN PRN Reason: Pain, moderate (4-7) Stop: 05/24/17 17:38 Last Admin: 05/22/17 07:06 Dose: 2 tab Tamsulosin HCl (Flomax) 0.4 mg PO DAILY [facility] Last Admin: 05/22/17 09:21 Dose: 0.4 mg - Labs Labs: 05/22/17 08:21 05/22/17 08:21 PT 12.4 SECONDS (9.7-12.2) H 05/17/17 11:24 INR 1.1 05/17/17 11:24 APTT 29 SECONDS (21-34) 05/17/17 11:24 - Constitutional Appears: Non-toxic, No Acute Distress - Head Exam Head Exam: ATRAUMATIC, NORMOCEPHALIC - Eye Exam Eye Exam: EOMI, Normal appearance Pupil Exam: NORMAL ACCOMODATION - ENT Exam ENT Exam: Mucous Membranes Moist - Respiratory Exam Respiratory Exam: Clear to Ausculation Bilateral, NORMAL BREATHING PATTERN. absent: Prolonged Expiratory Phase, Rhonchi, Wheezes - Cardiovascular Exam Cardiovascular Exam: REGULAR RHYTHM, +S1, +S2 - GI/Abdominal Exam GI & Abdominal Exam: Soft, Normal Bowel Sounds. absent: Tenderness - Extremities Exam Extremities Exam: absent: Pedal Edema, Tenderness Additional comments: left javed ulcer s/p skin graft repair, healing well - Neurological Exam Neurological Exam: Alert, Awake, CN II-XII Intact, Normal Gait, Oriented x3 - Psychiatric Exam Psychiatric exam: Normal Affect, Normal Mood - Skin Skin Exam: Dry, Intact, Normal Color, Warm Assessment and Plan - Assessment and Plan (Free Text) Assessment: Hematuria Resolved Urology consult. Dr. Chen, recommendations appreciated. s/p repeat cystoscopy with fulgeration of bleeding and removal of clots on s/p cystoscopy with fulgeration on 05/17 s/p transfusion of 2u pRBCs on 05/20 Will monitor CBC daily Flomax 0.4mg po daily Will remove chairez catheter and follow up as outpatient Abdominal pain Resolved CXR: No acute cardiopulmonary disease appreciated. CT dissection: No evidence of AAA or dissection. Bladder distended. Prostate enlarged. Hx of DM Patient denies home medications. Sugars well controlled. HgA1C 6.3 No need for acute medications, continue diet control Left leg ulcer PT evaluation Patient sees outpatient vascular surgeon and wound care facility. s/p skin graft repair. Continue management as outpatient. Will change dressing daily. GI/DVT ppx Encourage ambulation Protonix 40mg PO daily SCD contraindicated due to ulcer Chemical anticoagulation contraindicated due to hematuria Management per Dr Belcher
[2017-05-22] MEDS: Ferric Sodium Gluconat Complex 62.5 mg/5 ml Vial IVPB SCH (10:11)
[2017-05-22 15:47] VITALS: BP 144/90; PULSE 97; TEMP 98.3; O2SAT 98
[2017-05-22 21:57] LABS: TOTAL PSA 3.5 ng/mL (<=4.0)
== END 2017-05-22 19:04 | disposition home or self-care (01) | DRG 713 ==
LOC: C.ER 17:44 → C.3T 23:29
PROVIDERS: ADMIT Internal Medicine Pulmonary Disease; ATTEND Internal Medicine Pulmonary Disease
PROC: 0VC08ZZ Extirpation of Matter from Prostate, Via Natural or Artificial Opening Endoscopic (ICD-10-PCS; 2017-05-17)
PROC: 0T9B80Z Drainage of Bladder with Drainage Device, Via Natural or Artificial Opening Endoscopic (ICD-10-PCS; 2017-05-17)
PROC: 0V508ZZ Destruction of Prostate, Via Natural or Artificial Opening Endoscopic (ICD-10-PCS; principal; 2017-05-17 12:00)
DX: N40.1 Benign prostatic hyperplasia with lower urinary tract symptoms (principal); N42.1 Congestion and hemorrhage of prostate; R31.0 Gross hematuria; R33.8 Other retention of urine; N32.89 Other specified disorders of bladder; N39.44 Nocturnal enuresis; E11.622 Type 2 diabetes mellitus with other skin ulcer; L97.829 Non-pressure chronic ulcer of other part of left lower leg with unspecified severity; D64.9 Anemia, unspecified; I10 Essential (primary) hypertension; Z87.442 Personal history of urinary calculi; Z91.19 Patient's noncompliance with other medical treatment and regimen